=== PATIENT | male | born 1985 | race Caucasian/White ===

== ENCOUNTER → 2017-01-21 | Outpatient (CLI) | payer BC ==
[~2017-01-21] MED LIST: AZIT250T81 PO
--- NOTE | 2017-01-21 09:14 | Diagnostic Imaging Report ---
PROCEDURE: US Abdomen, limited. TECHNIQUE: Multiple realtime grayscale images were obtained over the abdomen in various projections. INDICATION: Elevated liver enzymes. FINDINGS: The liver parenchyma appears normal. There are no liver masses. Bile ducts are not dilated. The portal and hepatic vein are patent. Gallbladder appears normal. There are no gallstones. Gallbladder wall measures 2.5 mm. Common bile duct measures 1 mm. There is no free fluid. IMPRESSION: Normal gallbladder liver ultrasound. Dictated by: Dictated on workstation # [id number]
== END ==
LOC: RAD 08:27
PROVIDERS: ATTEND Internal Medicine
DX: R74.8 Abnormal levels of other serum enzymes (principal)
CPT/HCPCS: 76705